=== PATIENT | male | born 1995 | race Two or more races ===

== ENCOUNTER 2019-08-28 09:59 | Emergency (ER) | payer OTHER ==
[~2019-08-28] VITALS: Ht 170.2 cm; Wt 6.4 kg
--- NOTE | 2019-08-28 10:08 | NUR ---
Pt bib friend c/o laceration to L great toe s/p crush injury with ladder, pt is [id number] central [place] speaking, not in respiratory distress, v/s stable, kept rested and comfortable, will continue to monitor, awaiting er md for eval.
--- NOTE | 2019-08-28 11:10 | NUR ---
Bolivar ken at bedside for wound cleaning.
--- NOTE | 2019-08-28 11:59 | NUR ---
SEEN AND EXAMINED BY .
--- NOTE | 2019-08-28 12:07 | NUR ---
CHAIN MAKER HAND AT BEDSIDE FOR XRAY.
[2019-08-28] MEDS ORDERED: HYDROCODONE/APAP 5/325MG 1 EACH TABLET ONE (12:14)
[2019-08-28] MEDS ORDERED: IBUPROFEN 600 MG TABLET PO ONE ×3 (12:15→12:30)
[2019-08-28] MEDS ORDERED: HYDROCODONE/APAP 5/325MG 1 EACH TABLET PO ONE ×2 (12:30)
[2019-08-28] MEDS ORDERED: TDAP [DIPH/PERTUSSIS/TET] 0.5 ML VIAL IM ONE ×2 (12:30→12:38)
--- NOTE | 2019-08-28 13:40 | NUR ---
[employer] OFF[employer] AT WOUND CLINIC
--- NOTE | 2019-08-28 14:22 | NUR ---
[employer] SAL[employer] ASSOCIATE AT BEDSIDE FOR EVAL.
[2019-08-28 15:23] VITALS: BP 121/88
--- NOTE | 2019-08-28 15:23 | NUR ---
Patient discharged to home in stable condition. Written and verbal after care instructions given. Patient verbalizes understanding of instruction.
== END 2019-08-28 15:26 | disposition home or self-care (01) ==
LOC: ER 10:03
DX: S91.111A Laceration without foreign body of right great toe without damage to nail, initial encounter (principal); R20.0 Anesthesia of skin; W11.XXXA Fall on and from ladder, initial encounter; Y93.89 Activity, other specified; Y92.89 Other specified places as the place of occurrence of the external cause; Y99.0 Civilian activity done for income or pay
CPT/HCPCS: 73630-TC; 90715